=== PATIENT | female | born 1945 | race Caucasian/White ===

== ENCOUNTER → 2017-06-12 | Outpatient (CLI) | payer MEDICARE ==
[~2017-06-12] MED LIST: AMOX-367 PO; ATOR20TA9 PO; DOXY20TA5 PO; THYR30TA PO
[2017-06-12 13:57] LABS: MICROSCOPIC NOT IND
[2017-06-12 14:00] LABS: CULTURE INDICATED? NO
== END | disposition home or self-care (01) ==
LOC: STAR 13:02
PROVIDERS: ATTEND Surgery
DX: Z01.818 Encounter for other preprocedural examination (principal); K82.4 Cholesterolosis of gallbladder; K82.8 Other specified diseases of gallbladder; R94.31 Abnormal electrocardiogram [ECG] [EKG]; Z88.8 Allergy status to other drugs, medicaments and biological substances
CPT/HCPCS: 81003; 93005

== ENCOUNTER → 2017-06-19 | Outpatient (CLI) | payer MEDICARE ==
[~2017-06-19] MED LIST changes: +REGADENOSON 0.4 MG/5 ML SYRINGE ONE
== END | disposition home or self-care (01) ==
LOC: RAD 11:46
PROVIDERS: ATTEND Internal Medicine Cardiovascular Disease
DX: Z01.810 Encounter for preprocedural cardiovascular examination (principal); R06.02 Shortness of breath; R94.31 Abnormal electrocardiogram [ECG] [EKG]
CPT/HCPCS: 78452; 93017; A9502; J2785

== ENCOUNTER → 2017-07-31 | Outpatient (CLI) | payer MEDICARE ==
[~2017-07-31] MED LIST changes: -REGADENOSON 0.4 MG/5 ML SYRINGE ONE
[2017-07-31 16:08] LABS: MICROSCOPIC NOT IND
[2017-07-31 16:09] LABS: CULTURE INDICATED? NO
== END | disposition home or self-care (01) ==
LOC: STAR 14:59
PROVIDERS: ATTEND Surgery
DX: Z01.818 Encounter for other preprocedural examination (principal); K82.4 Cholesterolosis of gallbladder
CPT/HCPCS: 81003; 93005

== ENCOUNTER 2017-08-05 12:07 | Day surgery (SDC) | payer MEDICARE ==
[2017-07-31 15:28] VITALS: BP 137/86
[~2017-08-05] VITALS: Ht 156.2 cm; Wt 59.0 kg
[~2017-08-05 12:07] MED LIST changes: +BUPIVACAINE/PF-EPI 0.5% 1:200K ONE
[2017-08-05] MEDS ORDERED: LACTATED RINGERS 1,000 ML IV SCH (12:34)
[2017-08-05] MEDS ORDERED: EPHEDRINE 50 MG/ML, 1ML IVPush PRN (13:00)
[2017-08-05] MEDS ORDERED: FENTANYL PF 100 MCG/2ML IV PRN (13:00)
[2017-08-05] MEDS ORDERED: OXYcodone 5 MG/5 ML ORAL.SOL UDC PO PRN (13:00)
[2017-08-05] MEDS ORDERED: ALBUTEROL SULFATE 2.5 MG/3 ML NPPB PRN (13:00)
[2017-08-05] MEDS ORDERED: HALOPERIDOL 5 MG/ML IV PRN (13:00)
[2017-08-05] MEDS ORDERED: METOPROLOL 1 MG/ML, 5ML IV PRN (13:00)
[2017-08-05] MEDS ORDERED: LABETALOL 5MG/ML, 20ML IV PRN (13:00)
[2017-08-05] MEDS ORDERED: ONDANSETRON 0.8 MG/ML ORAL SOL PO PRN (13:00)
[2017-08-05] MEDS ORDERED: PROMETHAZINE 25 MG/ML, 1ML IV PRN (13:00)
[2017-08-05] MEDS ORDERED: hydrALAzine 20 MG/ML, 1ML IV PRN (13:00)
[2017-08-05] MEDS ORDERED: ACETAMINOPHEN 325 MG TABLET PO PRN (13:00)
[2017-08-05] MEDS ORDERED: FENTANYL PF 100 MCG/2ML ONE (13:29)
[2017-08-05] MEDS ORDERED: ONDANSETRON ODT 8 MG ONE (14:19)
[2017-08-05] MEDS ORDERED: CEFOTETAN PMX 1GM/50ML 50 ML ONE (14:19)
[2017-08-05] MEDS ORDERED: GLYCOPYRROLATE 0.4 MG/2 ML, 2ML ONE (14:19)
[2017-08-05] MEDS ORDERED: PROPOFOL 10 MG/ML, 20ML ONE (14:19)
[2017-08-05] MEDS ORDERED: NEOSTIGMINE 1 MG/ML, 10ML ONE (14:19)
[2017-08-05] MEDS ORDERED: ROCURONIUM 10MG/ML,5ML ONE (14:19)
[2017-08-05] MEDS ORDERED: DEXAMETHASONE 4 MG/ML, 1ML ONE (14:19)
[2017-08-05] MEDS ORDERED: ACETAMINOPHEN 650 MG/20.3 ML UDC ONE (14:41)
[2017-08-05] MEDS ORDERED: OXYcodone 5 MG/5 ML ORAL.SOL UDC ONE (14:42)
[2017-08-05] MEDS ORDERED: PROMETHAZINE 25 MG/ML, 1ML ONE (14:51)
[2017-08-05] MEDS ORDERED: KETOROLAC 30 MG/1 ML IVPush ONE (18:00)
== END 2017-08-05 19:20 | disposition home or self-care (01) ==
LOC: OUT 12:07 → 4NOR 17:36 → OUT 19:20
PROVIDERS: ATTEND Surgery
DX: K80.10 Calculus of gallbladder with chronic cholecystitis without obstruction (principal); Z88.8 Allergy status to other drugs, medicaments and biological substances; Z88.6 Allergy status to analgesic agent; Z88.1 Allergy status to other antibiotic agents; Z91.013 Allergy to seafood; Z98.890 Other specified postprocedural states
CPT/HCPCS: 47562; 88304; J1100; J1885; J2550; J2704; J2710; J3010; J7120; Q0162; S0074

== ENCOUNTER 2018-07-06 12:56 | Emergency (ER) | payer MEDICARE ==
[~2018-07-06] VITALS: Ht 154.9 cm; Wt 55.9 kg
[~2018-07-06 12:56] MED LIST changes: +ATOR20TA37 PO; -ATOR20TA9 PO; -BUPIVACAINE/PF-EPI 0.5% 1:200K ONE
[2018-07-06 13:42] LABS: BASOPHILS # (AUTO) 0.05 x10^3/uL (0-0.1); BASOPHILS % (AUTO) 1 % (0-1); EOSINOPHILS # (AUTO) 0.05 x10^3/uL (0-0.4); EOSINOPHILS % (AUTO) 1 % (1-7); LYMPHOCYTES # (AUTO) 1.78 x10^3/uL (1-3.4); LYMPHOCYTES % (AUTO) 26 % (22-44); MD NO; MEAN CORPUSCULAR HEMOGLOBIN 29.6 pg (27.0-34.8); MEAN CORPUSCULAR HGB CONC 33.4 g/dL (32.4-35.8); MEAN CORPUSCULAR VOLUME 88.5 fL (80-100); MEAN PLATELET VOLUME 7.5 fL (7.4-10.4); MONOCYTES # (AUTO) 0.33 x10^3/uL (0.2-0.8); MONOCYTES % (AUTO) 5 % (2-9); NEUTROPHILS # (AUTO) 4.72 x10^3/uL (1.8-6.8); NEUTROPHILS % (AUTO) 68 % (42-75); PLATELET COUNT 305 x10^3/uL (130-400); RED BLOOD COUNT 5.26 x10^6/uL (3.82-5.3); RED CELL DISTRIBUTION WIDTH 14.3 % (9.6-15.2)
[2018-07-06 13:53] LABS: ALANINE AMINOTRANSFERASE 24 U/L (12-78); ALBUMIN 3.8 g/dL (3.4-5.0); ANION GAP 7 mmol/L (5-15); CALCIUM 9.2 mg/dL (8.5-10.1); CHLORIDE 107 mmol/L (98-107); CREATININE 0.83 mg/dL (0.55-1.02)
[2018-07-06 13:57] LABS: ALKALINE PHOSPHATASE 77 U/L (45-117); BILIRUBIN,TOTAL 0.6 mg/dL (0.2-1.0); TOTAL PROTEIN 6.7 g/dL (6.4-8.2); TROPONIN I < 0.015 ng/mL (0.000-0.045)
[2018-07-06] MEDS ORDERED: FAMOTIDINE 20 MG TABLET PO ONE (14:00)
[2018-07-06] MEDS ORDERED: MAALOX/HYOSCYAMINE/LIDOCAINE 45 ML BTL PO ONE (14:00)
--- NOTE | 2018-07-06 14:22 | NUR ---
pt in [place].
--- NOTE | 2018-07-06 14:23 | NUR ---
CT WAITING FOR U/S TO FINISH
[2018-07-06 14:59] VITALS: BP 141/70
--- NOTE | 2018-07-06 15:01 | NUR ---
pt back from [facility]. [facility]. no needs at this time. call light within reach.
[2018-07-06 16:03] LABS: MICROSCOPIC NOT IND
[2018-07-06 16:09] LABS: CULTURE INDICATED? NO
== END 2018-07-06 15:56 | disposition home or self-care (01) ==
LOC: ED 15:50
DX: R10.13 Epigastric pain (principal); R51 Headache; R53.1 Weakness; Z90.49 Acquired absence of other specified parts of digestive tract; Z90.710 Acquired absence of both cervix and uterus; Z90.89 Acquired absence of other organs; Z85.51 Personal history of malignant neoplasm of bladder
CPT/HCPCS: 36415; 70450; 71045; 76700; 80053; 81003; 83690; 84484; 85025; 93005; 99284

== ENCOUNTER 2018-10-21 06:37 | Outpatient (CLI) | payer MEDICARE | END 2018-10-21 23:59 | disposition home or self-care (01) | LOC: CVU 06:37 | PROVIDERS: ATTEND Nurse Practitioner Family | DX: R42 Dizziness and giddiness (principal) | CPT/HCPCS: 93880 ==

== ENCOUNTER 2019-12-29 06:58 | Day surgery (SDC) | payer MEDICARE ==
[~2019-12-29] VITALS: Ht 156.2 cm; Wt 56.8 kg
[2019-12-29] MEDS ORDERED: LIDOCAINE 1%, 20ML ONE (07:19)
== END 2019-12-29 09:05 | disposition home or self-care (01) ==
LOC: CACL 06:58
PROVIDERS: ATTEND Internal Medicine Cardiovascular Disease
DX: R00.2 Palpitations (principal); I48.91 Unspecified atrial fibrillation; E78.2 Mixed hyperlipidemia; Z79.1 Long term (current) use of non-steroidal anti-inflammatories (NSAID); Z79.890 Hormone replacement therapy; Z79.899 Other long term (current) drug therapy; Z88.2 Allergy status to sulfonamides; Z88.5 Allergy status to narcotic agent; Z88.8 Allergy status to other drugs, medicaments and biological substances; Z91.013 Allergy to seafood
CPT/HCPCS: 33285; C1764